=== PATIENT | female | born 1930 | race Caucasian/White ===

== ENCOUNTER 2018-08-14 21:45 | Outpatient (CLI) | END 2018-08-14 22:06 | disposition short-term general hospital (02) | LOC: AMBL 21:45 | PROVIDERS: ATTEND Family Medicine | DX: S01.01XA Laceration without foreign body of scalp, initial encounter (principal); S50.311A Abrasion of right elbow, initial encounter; W19.XXXA Unspecified fall, initial encounter; Y92.129 Unspecified place in nursing home as the place of occurrence of the external cause ==

== ENCOUNTER 2020-03-21 07:06 | Inpatient (IN) ==
--- NOTE | 2020-03-21 07:50 | CT ---
EXAM: CT scan of the chest without contrast HISTORY: Fever, cough TECHNIQUE: Helical imaging of the chest was performed without contrast. 5 mm thin axial images and coronal and sagittal reconstructions were provided for interpretation. Comparison none. FINDINGS: Nodular opacities are seen in the right lower lobe of the lung seen on axial image number 38. Similar findings are seen in the right upper lobe of the lung. Patchy nodular opacities are als o seen in the left lower lobe of the lung. The left upper lobe appears clear. The heart is normal s ize. No mediastinal abnormalities are seen. There is diffuse atherosclerotic disease of the thoraci c aorta and coronary arteries. No lytic or blastic lesions are seen within the osseous structures. IMPRESSION: Bilateral pneumonia. 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
[2020-03-21 07:58] LABS: BASOPHILS % (AUTO) 0.2 % (0.0-3.0); HEMATOCRIT 44.4 % (37.0-47.0); HEMOGLOBIN 15.1 g/dl (12.0-16.0); IMMATURE GRANULOCYTE # (AUTO) 0.1 (0.0-1.0); IMMATURE GRANULOCYTE % (AUTO) 0.4 % (0.0-5.0); LYMPHOCYTES # (AUTO) 0.6 K/uL (0.60-3.4); MEAN CORPUSCULAR HEMOGLOBIN 32.1 pg (27.0-31.0); MEAN CORPUSCULAR VOLUME 94.3 fl (81.0-99.0); MONOCYTES # (AUTO) 1.4 K/uL (0.4-2.0); MONOCYTES % (AUTO) 6.4 (0-10); NEUTROPHILS # (AUTO) 19.4 K/ul (2.0-6.9); PLATELET COUNT 232 10^3/uL (140-440); RDW COEFFICIENT OF VARIATION 13.4 % (11.6-14.8); RED BLOOD COUNT 4.71 10^6/ul (4.20-5.40); WHITE BLOOD COUNT 21.53 K/ul (4.6-10.2)
[2020-03-21 08:11] LABS: CREATINE KINASE 56.2 U/L (30-135)
[2020-03-21 08:13] LABS: ALANINE AMINOTRANSFERASE 50.7 U/L (0-35); ALBUMIN 3.89 g/dL (3.5-5.0); ALKALINE PHOSPHATASE 97.8 U/L (53-141); BILIRUBIN,TOTAL 0.96 mg/dL (0.2-1.3); BLOOD UREA NITROGEN 39.2 mg/dL (7-17); CALCIUM 9.58 mg/dL (8.4-10.2); CARBON DIOXIDE 23.8 mmol/L (22-30.0); CHLORIDE 121.5 mmol/L (98-107); CREATININE 0.95 mg/dL (0.60-1.30); GLUCOSE 151.9 mg/dL (74-106); POTASSIUM 3.12 mmol/L (3.5-5.1); SODIUM 152.4 mmol/L (134.5-145); TOTAL PROTEIN 7.13 g/dL (6.3-8.2)
[2020-03-21 08:16] LABS: ABG PH 7.51 (7.35-7.45)
[2020-03-21 08:32] LABS: BILIRUBIN,URINE 1+ (NEGATIVE); CLARITY,URINE Slightly (CLEAR); COLOR,URINE Yellow (YELLOW); GLUCOSE, URINE (UA) Negative (NEGATIVE); KETONES,URINE Negative (NEGATIVE); LEUKOCYTE ESTERASE ,URINE 1+ (NEGATIVE); NITRITE,URINE Negative (NEGATIVE); PH,URINE 5.5 (5-9); PROTEIN,URINE 2+ (NEGATIVE); URINE, BLOOD 2+ (NEGATIVE); UROBILINOGEN,URINE 0.2 (0.2)
[2020-03-21 08:41] LABS: SQUAMOUS EPITHELIAL CELL,UR NOT PRESENT (0-5)
[2020-03-21 08:46] LABS: AMORPHOUS SEDIMENT,UR 1+ (NOT PRESENT); BACTERIA,URINE 2+ (NOT PRESENT)
[2020-03-21 08:48] LABS: TROPONIN I 0.773 ng/ml (0.0000-0.120)
--- NOTE | 2020-03-21 09:35 | ED.PDOC ---
General ED Provider: Dr. DELIO QUEZADA-ER Chief Complaint: Fever Stated Complaint: sent from the [facility] for fever Time Seen by Physician: 09:34 Mode of Arrival: Ambulance Information Source: Patient Primary Care Provider: ANTWAN GARCIA Nursing and Triage Documentation Reviewed and Agree: Yes Does patient meet sepsis criteria?: No System Inflammatory Response Syndrome: Temp 101F or Greater Sepsis Protocol: For patient's 13 years and over: Temp is 96.8 and below OR 101 and greater Pulse >90 BPM Resp >20/minute Acutely Altered Mental Status Are patient's symptoms suggestive of a new infection, such as: -Pneumonia -Skin, Soft Tissue -Endocarditis -UTI -Bone, Joint Infection -Implantable Device -Acute Abdominal Infection -Wound Infection -Meningitis -Blood Stream Catheter Infection -Unknown Respiratory Complaint Exam Respiratory Complaint/Exam Onset/Duration: unknown Symptoms Are: Still present Timing: Constant Initial Severity: Mild Current Severity: Mild Location: Chest Character: Reports Non-productive cough Aggravating: Reports URI Alleviating: Reports None Associated Signs and Symptoms: Reports Fever History of Healthcare-Acquired Pneumonia: Lives at detention Home Oxygen Use: No Recent Stress Test: No Recent Echo/LV Function: No Current Antibiotic Use: No Current Asthma Medication Use: No Respiratory Distress: None Inadequate Respiratory Effort: No Dysphagia Present: No Stridor Present: No JVD Present: No Accessory Muscle Use: No Retractions: Not Present Diminished Breath Sounds: No Sinus Tenderness: None Grunting Respirations: No Kussmaul Respirations: No Differential Diagnoses: Pneumonia Non-Traumatic Chest Pain Syncope: EKG Performed Review of Systems Review Of Systems Constitutional: Reports Fever Eyes: Reports No symptoms Ears, Nose, Mouth, Throat: Reports No symptoms Respiratory: Reports No symptoms GI: Reports No symptoms : Reports No symptoms Musculoskeletal: Reports No symptoms Skin: Reports No symptoms Neurological: Reports No symptoms Endocrine: Reports No symptoms Hematologic/Lymphatic: Reports No symptoms All Other Systems: Reviewed and Negative Physical Exam Physical Exam Appearance: Reports Well-appearing Ill-appearing: None Pain Distress: None Eyes: Reports CANDIDO, EOMI and Conjunctiva clear ENT: Reports Ears normal and Nose normal Neck: Supple Respiratory: Reports Airway patent, Breath sounds clear and Breath sounds equal Cardiovascular: Reports RRR, Pulses normal, No rub and No murmur GI/: Reports Soft, Nontender, No masses and Bowel sounds normal Musculoskeletal: Reports Normal strength, ROM intact, No edema and No calf tenderness Skin: Reports Warm, Dry and Normal color Neurological: Reports Sensation intact, Motor intact, Reflexes intact and Cranial nerves intact Psychiatric: Reports Affect appropriate and Mood appropriate Interpretation Radiology Interpretation Radiology Interpretation By: ED Physician Radiology Results: Positive Exam Interpreted: CT Scan EKG Interpretation Time of EKG #1: 09:32 Rate: Tachy Rhythm: Sinus Ectopy: None [place]: NL ST Segment: Normal Interpretation: sinus tachy Physician Notification Case Discussed Physician Notified: dr garcia Time of Notification: 09:33 Critical Care Note Critical Care Note Total Critical Care Time (mins): 0 Course Course Hematology/Chemistry: 03/21/20 07:55 03/21/20 07:55 Orders, Labs, Meds: Lab Review 03/21/20 03/21/20 03/21/20 07:55 07:55 07:55 WBC 21.53 H RBC 4.71 Hgb 15.1 Hct 44.4 MCV 94.3 MCH 32.1 H MCHC 34.0 RDW Coeff of Jacques 13.4 Plt Count 232 Immature Gran % (Auto) 0.4 Neut % (Auto) 90.0 H Lymph % (Auto) 3.0 L [place] % (Auto) 6.4 Eos % (Auto) 0.0 Baso % (Auto) 0.2 Neut # (Auto) 19.4 H Lymph # (Auto) 0.6 [place] # (Auto) 1.4 Eos # (Auto) 0.0 Baso # (Auto) 0.0 Immature Gran # (Auto) 0.1 Puncture Site Base Excess O2 Saturation ABG pH ABG pCO2 ABG pO2 ABG HCO3 ABG Total CO2 Hemoglobin Oxyhemoglobin Carboxyhemoglobin Total Hemoglobin FiO2 % Sodium 152.4 H Potassium 3.12 L Chloride 121.5 H Carbon Dioxide 23.8 Anion Gap 10.22 BUN 39.2 H Creatinine 0.95 Estimated GFR (MDRD) 56.00 BUN/Creatinine Ratio 41.26 Glucose 151.9 H Lactic Acid 1.48 Calcium 9.58 Total Bilirubin 0.96 AST 57.0 H ALT 50.7 H Alkaline Phosphatase 97.8 Total Creatine Kinase Troponin I Total Protein 7.13 Albumin 3.89 Globulin 3.24 Albumin/Globulin Ratio 1.20 Urine Color Urine Clarity Urine pH Ur Specific [place] Urine Protein Urine Glucose (UA) Urine Ketones Urine Blood Urine Nitrite Urine Bilirubin Urine Urobilinogen Ur Leukocyte Esterase Urine Microscopic RBC Urine Microscopic WBC Ur Squamous Epith Cells Ur Transition Epith Cell Amorphous Sediment Urine Bacteria Adenovirus (PCR) B. pertussis DNA (PCR) B.parapertussis DNA PCR C. pneumoniae DNA (PCR) Coronavirus OC43 (PCR) Coronavirus HKU1 (PCR) Coronavirus 229E (PCR) Coronavirus NL63 (PCR) Human Metapneumovir PCR Influenza Type A (PCR) Influenza B (RT-PCR) M. pneumoniae (PCR) Parainfluenza 1 (PCR) Parainfluenza 2 (PCR) Parainfluenza 3 (PCR) Parainfluenza 4 (PCR) RSV (PCR) Entero/Rhino (PCR) SARS-CoV-2 (PCR) 03/21/20 03/21/20 03/21/20 07:55 07:55 08:00 WBC RBC Hgb Hct MCV MCH MCHC RDW Coeff of Jacques Plt Count Immature Gran % (Auto) Neut % (Auto) Lymph % (Auto) [place] % (Auto) Eos % (Auto) Baso % (Auto) Neut # (Auto) Lymph # (Auto) [place] # (Auto) Eos # (Auto) Baso # (Auto) Immature Gran # (Auto) Puncture Site Rb Base Excess 1.7 O2 Saturation 91.3 L ABG pH 7.51 H* ABG pCO2 31.0 L ABG pO2 55.0 L* ABG HCO3 24.7 ABG Total CO2 25.7 H Hemoglobin 1.1 Oxyhemoglobin 89.2 L Carboxyhemoglobin 2.9 H Total Hemoglobin 15.3 FiO2 % 21.0 Sodium Potassium Chloride Carbon Dioxide Anion Gap BUN Creatinine Estimated GFR (MDRD) BUN/Creatinine Ratio Glucose Lactic Acid Calcium Total Bilirubin AST ALT Alkaline Phosphatase Total Creatine Kinase 56.2 Troponin I 0.773 H* Total Protein Albumin Globulin Albumin/Globulin Ratio Urine Color Urine Clarity Urine pH Ur Specific [place] Urine Protein Urine Glucose (UA) Urine Ketones Urine Blood Urine Nitrite Urine Bilirubin Urine Urobilinogen Ur Leukocyte Esterase Urine Microscopic RBC Urine Microscopic WBC Ur Squamous Epith Cells Ur Transition Epith Cell Amorphous Sediment Urine Bacteria Adenovirus (PCR) Not detected B. pertussis DNA (PCR) Not detected B.parapertussis DNA PCR Not detected C. pneumoniae DNA (PCR) Not detected Coronavirus OC43 (PCR) Not detected Coronavirus HKU1 (PCR) Not detected Coronavirus 229E (PCR) Not detected Coronavirus NL63 (PCR) Not detected Human Metapneumovir PCR Not detected Influenza Type A (PCR) Not detected Influenza B (RT-PCR) Not detected M. pneumoniae (PCR) Not detected Parainfluenza 1 (PCR) Not detected Parainfluenza 2 (PCR) Not detected Parainfluenza 3 (PCR) Not detected Parainfluenza 4 (PCR) Not detected RSV (PCR) Not detected Entero/Rhino (PCR) Not detected SARS-CoV-2 (PCR) Not detected 03/21/20 08:05 WBC RBC Hgb Hct MCV MCH MCHC RDW Coeff of Jacques Plt Count Immature Gran % (Auto) Neut % (Auto) Lymph % (Auto) [place] % (Auto) Eos % (Auto) Baso % (Auto) Neut # (Auto) Lymph # (Auto) [place] # (Auto) Eos # (Auto) Baso # (Auto) Immature Gran # (Auto) Puncture Site Base Excess O2 Saturation ABG pH ABG pCO2 ABG pO2 ABG HCO3 ABG Total CO2 Hemoglobin Oxyhemoglobin Carboxyhemoglobin Total Hemoglobin FiO2 % Sodium Potassium Chloride Carbon Dioxide Anion Gap BUN Creatinine Estimated GFR (MDRD) BUN/Creatinine Ratio Glucose Lactic Acid Calcium Total Bilirubin AST ALT Alkaline Phosphatase Total Creatine Kinase Troponin I Total Protein Albumin Globulin Albumin/Globulin Ratio Urine Color Yellow Urine Clarity Slightly Urine pH 5.5 Ur Specific [place] >=1.030 Urine Protein 2+ H Urine Glucose (UA) Negative Urine Ketones Negative Urine Blood 2+ H Urine Nitrite Negative Urine Bilirubin 1+ H Urine Urobilinogen 0.2 Ur Leukocyte Esterase 1+ H Urine Microscopic RBC 5-10 Urine Microscopic WBC 10-20 Ur Squamous Epith Cells Not present Ur Transition Epith Cell 5-10 Amorphous Sediment 1+ Urine Bacteria 2+ Adenovirus (PCR) B. pertussis DNA (PCR) B.parapertussis DNA PCR C. pneumoniae DNA (PCR) Coronavirus OC43 (PCR) Coronavirus HKU1 (PCR) Coronavirus 229E (PCR) Coronavirus NL63 (PCR) Human Metapneumovir PCR Influenza Type A (PCR) Influenza B (RT-PCR) M. pneumoniae (PCR) Parainfluenza 1 (PCR) Parainfluenza 2 (PCR) Parainfluenza 3 (PCR) Parainfluenza 4 (PCR) RSV (PCR) Entero/Rhino (PCR) SARS-CoV-2 (PCR) Orders Category Date Time Status ABG DRAW REQUEST Stat CARDIO 03/21/20 07:13 Completed EKG-(ED ONLY) Stat CARDIO 03/21/20 07:13 Completed STRAIGHT CATH INSERTION ONCE CARE 03/21/20 07:17 Active ED PULVERIZER TENDER APPLIED .ONCE EMERGENCY 03/21/20 07:13 Active ED IV/MEDIPORT/POWERPORT .ONCE EMERGENCY 03/21/20 08:35 Active ABG COOX Stat LAB 03/21/20 08:00 Completed BLOOD CULTURE (ED ONLY) Stat LAB 03/21/20 07:55 Received CBC W/ AUTO DIFF Stat LAB 03/21/20 07:55 Completed COMPREHENSIVE METABOLIC PANEL Stat LAB 03/21/20 07:55 Completed CREATINE KINASE Stat LAB 03/21/20 07:55 Completed LACTIC ACID Stat LAB 03/21/20 07:55 Completed RESPIRATORY PANEL 2.1 (PCR) Stat LAB 03/21/20 07:55 Completed TROPONIN I Stat LAB 03/21/20 07:55 Completed URINALYSIS C & S IF INDICATED Stat LAB 03/21/20 08:05 Completed URINE CULTURE Stat LAB 03/21/20 08:05 Received 0.9 % Sodium Chloride [Saline Flush] MEDS 03/21/20 08:35 Active 1 syr IVF PRN PRN CT CHEST W/O CONTRAST Stat RADS 03/21/20 07:12 Completed Medications Generic Name Dose Route Start Last Admin Trade Name Freq PRN Reason Stop Dose Admin Sodium Chloride 1 syr 03/21/20 08:35 0.9% Sodium Chloride 10 Ml Disp.Syrin IVF PRN PRN To flush IV Vital Signs: Temp Pulse Resp BP Pulse Ox 03/21/20 07:13 97.1 F L 116 H 24 119/68 91 L Discharge Plan Discharge Patient Disposition: ADMITTED INPATIENT Discharge Problem: Acute respiratory failure, Bilateral pneumonia Prescriptions: No Action tramadol 50 mg tablet 50 mg PO BID RF: 0 lisinopril 10 mg tablet 10 mg PO DAILY RF: 0 oxybutynin chloride 5 mg tablet extended release 24hr 5 mg PO DAILY RF: 0 rivastigmine tartrate 3 mg capsule 3 mg PO BID RF: 0 magnesium hydroxide [Milk Of Magnesia Concentrated] 2,400 mg/10 mL Suspension 30 ml PO PRN PRN (Reason: Constipation) RF: 0 Vicks Babyrub Ointment 1 ea TOPICAL BEDTIME RF: 0 ED Provider: DELIO ALVAREZ Condition: Stable Physician Progress Note: []
[2020-03-21] MEDS ORDERED: SODIUM CHLORIDE 1,000 ML IV STA (09:44)
[2020-03-21] MEDS ORDERED: SODIUM CHLORIDE 1,000 ML IV SCH (10:00)
[2020-03-21] MEDS ORDERED: VANCOMYCIN 1 GM in SODIUM CHLORIDE 250 ML IV STA (10:15)
[2020-03-21] MEDS ORDERED: MILK OF MAGNESIA PO PRN (10:19)
[2020-03-21 11:20] VITALS: BMI 18.2
[2020-03-21] MEDS ORDERED: ZOSYN 3.375 GM 3.375 GM in SODIUM CHLORIDE 50 ML IV SCH (13:00)
[2020-03-21] MEDS ORDERED: VENTOLIN HFA (PER PUFF-WITH SPACER) IH ONE ×2 (17:40→23:00)
[2020-03-21] MEDS ORDERED: SODIUM CHLORIDE IV SCH (21:00)
[2020-03-21] MEDS ORDERED: VANCOMYCIN IV SCH (21:00)
[2020-03-22] MEDS ORDERED: VENTOLIN HFA (PER PUFF-WITH SPACER) IH ONE ×4 (04:45→23:00)
[2020-03-22] MEDS ORDERED: K-DUR ONE ×3 (14:23→20:42)
[2020-03-22] MEDS ORDERED: POTASSIUM CHLORIDE 20 MEQ VIAL- ADDITIVE ONLY IV ONE (15:18)
[2020-03-23] MEDS ORDERED: POTASSIUM CHLORIDE 20 MEQ VIAL- ADDITIVE ONLY IV ONE ×2 (02:45→16:35)
[2020-03-23] MEDS ORDERED: VENTOLIN HFA (PER PUFF-WITH SPACER) IH ONE ×2 (11:15→17:10)
[2020-03-23] MEDS: DITROPAN XL PO SCH (18:45)
[2020-03-23] MEDS: LOVENOX SUBCUT SCH ×2 (18:45→18:46)
[2020-03-23] MEDS: MAXIPIME 2 GM/50 ML D5W 2 GM/50 ML BAG IV SCH ×2 (18:46→21:38)
[2020-03-23] MEDS: PROAIR HFA (SINGLE PATIENT USE) IH SCH ×3 (18:46→21:38)
[2020-03-23] MEDS: RIVASTIGMINE TARTRATE 3 MG PO SCH ×3 (18:47→21:37)
[2020-03-23] MEDS: SOLU-MEDROL 40 MG IVP SCH ×4 (18:47→21:39)
[2020-03-23] MEDS: VANCOMYCIN 500 MG in SODIUM CHLORIDE 100 ML IV SCH (18:48)
[2020-03-23] MEDS: ZESTRIL PO SCH ×2 (18:48→18:49)
[2020-03-23] MEDS: ULTRAM PO SCH ×3 (18:48→21:38)
[2020-03-23 21:46] LABS: HEMATOCRIT 41.5 % (37.0-47.0); MEAN CORPUSCULAR VOLUME 96.5 fl (81.0-99.0); WHITE BLOOD COUNT 24.83 K/ul (4.6-10.2)
[2020-03-23 21:47] LABS: ANISOCYTOSIS NOT PRESENT (NOT PRESENT); MEAN CORPUSCULAR HEMOGLOBIN 32.6 pg (27.0-31.0); MEAN CORPUSCULAR HGB CONC 33.7 (31.8-35.4); PLATELET COUNT 191 10^3/uL (140-440); RDW COEFFICIENT OF VARIATION 13.8 % (11.6-14.8)
[2020-03-23 21:48] LABS: ASPARTATE AMINO TRANSFERASE 40.8 U/L (14-36); BILIRUBIN,TOTAL 0.88 mg/dL (0.2-1.3); BLOOD UREA NITROGEN 39.1 mg/dL (7-17); CALCIUM 8.93 mg/dL (8.4-10.2); CARBON DIOXIDE 22.6 mmol/L (22-30.0); CREATININE 0.85 mg/dL (0.60-1.30); GLUCOSE 132.4 mg/dL (74-106); POTASSIUM 2.88 mmol/L (3.5-5.1)
[2020-03-23 21:49] LABS: ALBUMIN 3.35 g/dL (3.5-5.0); ALKALINE PHOSPHATASE 85.7 U/L (53-141); TOTAL PROTEIN 6.46 g/dL (6.3-8.2)
[2020-03-23 22:00] LABS: HEMATOCRIT 39.5 % (37.0-47.0); MEAN CORPUSCULAR HEMOGLOBIN 32.2 pg (27.0-31.0); MEAN CORPUSCULAR HGB CONC 32.9 (31.8-35.4); MEAN CORPUSCULAR VOLUME 97.8 fl (81.0-99.0); PLATELET COUNT 191 10^3/uL (140-440); RDW COEFFICIENT OF VARIATION 14.2 % (11.6-14.8); RED BLOOD COUNT 4.04 10^6/ul (4.20-5.40); WHITE BLOOD COUNT 22.79 K/ul (4.6-10.2)
[2020-03-23 22:01] LABS: ANISOCYTOSIS NOT PRESENT (NOT PRESENT)
[2020-03-23 22:02] LABS: CHLORIDE 125.3 mmol/L (98-107); POTASSIUM 4.3 mmol/L (3.5-5.1); SODIUM 149.6 mmol/L (134.5-145)
[2020-03-23 22:03] LABS: ALBUMIN 2.99 g/dL (3.5-5.0); ASPARTATE AMINO TRANSFERASE 32.2 U/L (14-36); BILIRUBIN,TOTAL 0.51 mg/dL (0.2-1.3); CALCIUM 8.92 mg/dL (8.4-10.2); CARBON DIOXIDE 28.8 mmol/L (22-30.0); CREATININE 0.69 mg/dL (0.60-1.30); GLUCOSE 158.8 mg/dL (74-106); TOTAL PROTEIN 6.09 g/dL (6.3-8.2)
[2020-03-23 22:04] LABS: ALKALINE PHOSPHATASE 89.8 U/L (53-141)
[2020-03-23] MEDS: VENTOLIN HFA (PER PUFF-WITH SPACER) IH SCH (23:34)
[2020-03-24] MEDS: VENTOLIN HFA (PER PUFF-WITH SPACER) IH SCH ×4 (04:30→23:30)
[2020-03-24] MEDS ORDERED: POTASSIUM CHLORIDE 20 MEQ VIAL- ADDITIVE ONLY IV ONE (05:28)
[2020-03-24] MEDS: [UNRECOGNIZED DRUG - MIXTURE] IV SCH (05:32)
[2020-03-24 07:03] LABS: BASOPHILS % (AUTO) 0.1 % (0.0-3.0); HEMATOCRIT 38.1 % (37.0-47.0); HEMOGLOBIN 12.5 g/dl (12.0-16.0); IMMATURE GRANULOCYTE # (AUTO) 0.2 (0.0-1.0); IMMATURE GRANULOCYTE % (AUTO) 1.1 % (0.0-5.0); LYMPHOCYTES # (AUTO) 0.6 K/uL (0.60-3.4); LYMPHOCYTES % (AUTO) 3.2 (10.0-50.0); MEAN CORPUSCULAR HEMOGLOBIN 32.1 pg (27.0-31.0); MEAN CORPUSCULAR HGB CONC 32.8 (31.8-35.4); MEAN CORPUSCULAR VOLUME 97.9 fl (81.0-99.0); MONOCYTES # (AUTO) 0.4 K/uL (0.4-2.0); MONOCYTES % (AUTO) 2.3 (0-10); NEUTROPHILS # (AUTO) 17.3 K/ul (2.0-6.9); NEUTROPHILS % (AUTO) 93.3 % (42.2-75.2); PLATELET COUNT 185 10^3/uL (140-440); RDW COEFFICIENT OF VARIATION 13.8 % (11.6-14.8); RED BLOOD COUNT 3.89 10^6/ul (4.20-5.40)
[2020-03-24 07:38] LABS: ALANINE AMINOTRANSFERASE 51.3 U/L (0-35); ALBUMIN 2.99 g/dL (3.5-5.0); ALKALINE PHOSPHATASE 76.5 U/L (53-141); ASPARTATE AMINO TRANSFERASE 51.4 U/L (14-36); BILIRUBIN,TOTAL 0.5 mg/dL (0.2-1.3); CALCIUM 9.4 mg/dL (8.4-10.2); CREATININE 0.7 mg/dL (0.60-1.30); GLUCOSE 147.7 mg/dL (74-106); TOTAL PROTEIN 6.07 g/dL (6.3-8.2)
[2020-03-24 07:58] LABS: CARBON DIOXIDE 28.9 mmol/L (22-30.0); CHLORIDE 112.6 mmol/L (98-107); POTASSIUM 5.5 mmol/L (3.5-5.1); SODIUM 139.7 mmol/L (134.5-145)
[2020-03-24] MEDS ORDERED: LASIX IVP STA (08:23)
[2020-03-24] MEDS: MAXIPIME 2 GM/50 ML D5W 2 GM/50 ML BAG IV SCH ×2 (09:32→20:37)
[2020-03-24] MEDS: DITROPAN XL PO SCH (09:32)
[2020-03-24] MEDS: ULTRAM PO SCH ×2 (09:32→20:37)
[2020-03-24] MEDS: ZESTRIL PO SCH (09:32)
[2020-03-24] MEDS: LOVENOX SUBCUT SCH (09:33)
--- NOTE | 2020-03-24 09:35 | PCM.PROG ---
Attending Provider: ATTENDING PROVIDER: Dr. ANTWAN MEHTA This patient is seen with Amanda Hancock, Nurse Practitioner. DATE OF SERVICE: 03/24/20 SUBJECTIVE: This 89 year old /WHITE F was hospitalized 03/21/20. The patient is alert however not responsive. She has not been eating. Shallow respirations. She appears to be declining. REVIEW OF SYSTEMS: CONSTITUTIONAL: No night sweats. Lethargy. No fever or chills. Weakness. HEENT: Eyes: No visual changes. No eye pain. No eye discharge. ENT: No runny nose. No epistaxis. No sinus pain. No odynophagia. No congestion. RESPIRATORY: Cough, no congestion. No hemoptysis. Shortness of breath. CARDIOVASCULAR: No angina symptoms. No CHF symptoms. No atypical chest pain for CAD. No palpitations. No orthopnea.. GASTROINTESTINAL: No abdominal pain. No nausea or vomiting. No diarrhea or constipation. No hematemesis. No hematochezia. GENITOURINARY: No urgency. No frequency. No dysuria. No hematuria. No obstructive symptoms. No discharge. No pain. No significant abnormal bleeding. MUSCULOSKELETAL: No musculoskeletal pain; no joint swelling. NEUROLOGICAL: Awake, alert, oriented to time, place and person. No headache. No neck pain. No syncope. No seizures. No dizziness. PSYCHIATRIC: Not anxious. No depression. No suicidal thoughts. No homicidal thoughts. SKIN: No rash. No lesions. No wounds. ENDOCRINE: No unexplained weight loss. No weight gain. HEMATOLOGIC/LYMPHATIC: No anemia. No purpura. No petechiae. No prolonged or excessive bleeding. No palpable lymph nodes. PHYSICAL EXAMINATION: GENERAL: The patient is awake, alert and not oriented, lying in bed in no distress. VITAL SIGNS: Temperature 96.8 F, Pulse 59, Respiratory Rate 16, BP 144/68, Pulse Ox 98% HEENT: Head normocephalic, atraumatic. Eyes: Extraocular muscles are intact. Pupils are equal, round and reactive to light and accommodation. Ears: No lesions. Nose appeared normal. Throat: No exudate or erythema. NECK: Supple. No JVD, no carotid bruit. No lymphadenopathy or thyromegaly. LUNGS: bilateral rhonchi. Clear to auscultation. Percussion note normal. Chest symmetrical. HEART: S1, S2, no S3. No murmurs. No cyanosis or clubbing. No ascites. Pulses: Dorsalis pedis and posterior tibial pulses +1 to +2 both sides. ABDOMEN: Soft. Non-tender. Bowel sounds active. No CVA tenderness. No mass felt. EXTREMITIES: No edema. Full range of motion of all extremities, equal. NEUROLOGIC: No focal deficit. Cranial nerves II through XII are grossly intact. No headache, no double vision or headache. SKIN: Not dry. Intact. Turgor-normal. LYMPHATIC: No palpable lymph nodes/no lymphedema. MUSCULOSKELETAL: Normal joints with no swelling. Muscle tone is normal. LAB REVIEW: 03/24/20 06:50 03/23/20 06:00 03/24/20 06:50: WBC 18.50 H, RBC 3.89 L, Hgb 12.5, Hct 38.1, MCV 97.9, MCH 32.1 H, MCHC 32.8, RDW Coeff of Jacques 13.8, Plt Count 185, Immature Gran % (Auto) 1.1, Neut % (Auto) 93.3 H, Lymph % (Auto) 3.2 L, [place] % (Auto) 2.3, Eos % (Auto) 0.0, Baso % (Auto) 0.1, Neut # (Auto) 17.3 H, Lymph # (Auto) 0.6, [place] # (Auto) 0.4, Eos # (Auto) 0.0, Baso # (Auto) 0.0, Immature Gran # (Auto) 0.2 03/23/20 06:00: Sodium 149.6 H, Potassium 4.30, Chloride 125.3 H, Carbon Dioxide 28.8, Anion Gap -0.20, BUN 36.0 H, Creatinine 0.69, Estimated GFR (MDRD) 80.00, BUN/Creatinine Ratio 52.17, Glucose 158.8 H, Calcium 8.92, Total Bilirubin 0.51, AST 32.2, ALT 32.0, Alkaline Phosphatase 89.8, Total Protein 6.09 L, Albumin 2.99 L, Globulin 3.10, Albumin/Globulin Ratio 0.96 03/23/20 06:00: WBC 22.79 H, RBC 4.04 L, Hgb 13.0, Hct 39.5, MCV 97.8, MCH 32.2 H, MCHC 32.9, RDW Coeff of Jacques 14.2, Plt Count 191, Neutrophils % (Manual) 91.0 H, Lymphocytes % (Manual) 4.0 L, Monocytes % (Manual) 5.0, Anisocytosis Not present 03/22/20 06:00: Sodium 155.0 H, Potassium 2.88 L, Chloride 127.0 H*, Carbon Dioxide 22.6, Anion Gap 8.28, BUN 39.1 H, Creatinine 0.85, Estimated GFR (MDRD) 63.00, BUN/Creatinine Ratio 46.00, Glucose 132.4 H, Calcium 8.93, Total Bilirubin 0.88, AST 40.8 H, ALT 42.0 H, Alkaline Phosphatase 85.7, Total Protein 6.46, Albumin 3.35 L, Globulin 3.11, Albumin/Globulin Ratio 1.07 03/22/20 06:00: WBC 24.83 H, RBC 4.30, Hgb 14.0, Hct 41.5, MCV 96.5, MCH 32.6 H, MCHC 33.7, RDW Coeff of Jacuqes 13.8, Plt Count 191, Neutrophils % (Manual) 93.0 H, Lymphocytes % (Manual) 2.0 L, Monocytes % (Manual) 5.0, Anisocytosis Not present 03/21/20 23:45: Troponin I 1.330 H* ASSESSMENT: Please see below. 1. Bilateral pneumonia 2. Acute respiratory failure 3. Dementia 4. Hypernatremia 5. Dehydration PLAN: 1. ABG on 2 liters 2. COVID antibodies 3. 20mg Lasix IV Plan and coordination of the patient's care discussed in the presence of Utility Accounts Director and nurse. SCRIBED BY: Cathy GARLAND scribed while in presence of service performed by Dr. Mehta/Amanda Hancock APRN on 03/24/20 ([id number])
[2020-03-24] MEDS: RIVASTIGMINE TARTRATE 3 MG PO SCH ×2 (09:59→20:41)
[2020-03-24] MEDS ORDERED: LASIX ONE (10:33)
[2020-03-24] MEDS: SOLU-MEDROL 40 MG IVP SCH ×2 (10:42→20:30)
[2020-03-24 11:00] LABS: ABG PH 7.45 (7.35-7.45)
--- NOTE | 2020-03-24 11:06 | PN ---
DATE OF SERVICE: 03/21/20 SUBJECTIVE: 89-year-old white female hospitalized through the emergency room. She was told to be sent to the emergency room by me. The [facility] called me because she was wheezing and running a fever. The patient's rapid Covid-19 test was negative. The patient's Covid-19 RTPCR test was negative in the emergency room. She was hospitalized with fever. Likely has urinary tract infection with possibility of bronchitis. She is going to be on IV antibiotics, steroids, nebs. She is DNR. She will need some IV fluids. Condition right now is stable. The patient is obtunded in a way, seems to be awake but disoriented. Normal cardiovascular status. TIME SPENT: More than 30 minutes. Plan and coordination of the patient's care discussed in the presence of nurse. JONAS
--- NOTE | 2020-03-24 14:02 | PN ---
DATE OF SERVICE: 03/23/2020 SUBJECTIVE: 89 year old white female hospitalized with UTI and possibility of pneumonia. The patient's condition seems to be stabilizing but confused. REVIEW OF SYSTEMS: CONSTITUTIONAL: No night sweats. No fatigue, malaise, lethargy. No fever or chills. HEENT: Eyes: No visual changes. No eye pain. No eye discharge. ENT: No runny nose. No epistaxis. No sinus pain. No sore throat. No odynophagia. No congestion. RESPIRATORY: No cough, no congestion. No hemoptysis. No shortness of breath. CARDIOVASCULAR: No angina symptoms. No CHF symptoms. No atypical chest pain for CAD. No palpitations. No PND. No orthopnea. GASTROINTESTINAL: No abdominal pain. No nausea or vomiting. No diarrhea or constipation. No hematemesis. No hematochezia. GENITOURINARY: No urgency. No frequency. No dysuria. No hematuria. No obstructive symptoms. No discharge. No pain. No significant abnormal bleeding. MUSCULOSKELETAL: No musculoskeletal pain; no joint swelling. NEUROLOGICAL: No headache. No neck pain. No syncope. No seizures. No dizziness. PSYCHIATRIC: Not anxious. No depression. No suicidal thoughts. No homicidal thoughts. SKIN: No rash. No lesions. No wounds. ENDOCRINE: No unexplained weight loss. No weight gain. HEMATOLOGIC/LYMPHATIC: No anemia. No purpura. No petechiae. No prolonged or excessive bleeding. No palpable lymph nodes. PHYSICAL EXAMINATION: HEENT: Head normocephalic, atraumatic. Eyes: Extraocular muscles are intact. Pupils are equal, round and reactive to light and accommodation. Ears: No lesions. Nose appeared normal. Throat: No exudate or erythema. NECK: Supple. No JVD, no carotid bruit. No lymphadenopathy or thyromegaly. LUNGS: Decreased breath sounds. Clear to auscultation. Percussion note normal. Chest symmetrical. HEART: S1, S2, no S3. No murmurs. No cyanosis or clubbing. No ascites. Pulses: Dorsalis pedis and posterior tibial pulses +1 to +2 bilaterally. ABDOMEN: Soft. Nontender. Bowel sounds active. No CVA tenderness. No mass felt. EXTREMITIES: No edema. Full range of motion of all extremities, equal. NEUROLOGIC: No focal deficit. Cranial nerves II through XII are grossly intact. No headache, no double vision or headache. SKIN: Not dry. Intact. Turgor - normal. LYMPHATIC: No palpable lymph nodes/no lymphedema. MUSCULOSKELETAL: Normal joints with no swelling. Muscle tone is normal. ASSESSMENT: 1. UTI 2. Possibility of pneumonia 3. Dementia 4. Dehydration 5. Electrolyte imbalance. PLAN: 1. Continue D5W. The patient's sodium is much better. Sodium 149, chloride 125. 2. Hyperkalemia seems to have resolved with Potassium of 4.3. We will discontinue oral Potassium 3. He is being treated with Cefepime 4. The patient has cough 5. WBC count from 24,000 down to 22,000. CONDITION: Seems to have improved. TIME SPENT: More than 30 minutes. Plan and coordination of the patient's care discussed in the presence of nurse. JONAS
--- NOTE | 2020-03-24 14:37 | PN ---
DATE OF SERVICE: 03/22/20 SUBJECTIVE: 59-year-old white female hospitalized with urinary tract infection, dehydration, wheezing. The patient had hypernatrmeia. She has hypokalemia along with hypernatremia. The patient is still obtunded, opens her eyes. Appetite is poor. PHYSICAL EXAMINATION: HEENT: Head normocephalic, atraumatic. Eyes: Extraocular muscles are intact. Pupils are equal, round and reactive to light and accommodation. Ears: No lesions. Nose appeared normal. Throat: No exudate or erythema. NECK: Supple. No JVD, no carotid bruit. No lymphadenopathy or thyromegaly. LUNGS: Decreased breath sounds. Clear to auscultation. Percussion note normal. Chest symmetrical. HEART: S1, S2, no S3. No murmurs. No cyanosis or clubbing. No ascites. Pulses: Dorsalis pedis and posterior tibial pulses +1 to +2 bilaterally. ABDOMEN: Soft. Nontender. Bowel sounds active. No CVA tenderness. No mass felt. EXTREMITIES: No edema. Full range of motion of all extremities, equal. NEUROLOGIC: No focal deficit. Cranial nerves II through XII are grossly intact. No headache, no double vision or headache. SKIN: Not dry. Intact. Turgor - normal. LYMPHATIC: No palpable lymph nodes/no lymphedema. MUSCULOSKELETAL: Normal joints with no swelling. Muscle tone is normal. The patient is Covid negative. ASSESSMENT: 1. Dehydration with electrolyte imbalance. 2. Wheezing with bronchitis. 3. Urinary tract infection. PLAN: 1. Continue antibiotics, Cefepime. 2. Discontinue Vancomycin. 3. Add 30 mEq KCL to each IV bag, 1000 cc D5W to run 12 hourly. CONDITION: Stable. PROGNOSIS: Poor. TIME SPENT: More than 30 minutes. Plan and coordination of the patient's care discussed in the presence of nurse. JONAS
[2020-03-24] MEDS: SODIUM CHLORIDE 1,000 ML IV SCH (19:37)
[2020-03-25] MEDS: VENTOLIN HFA (PER PUFF-WITH SPACER) IH SCH ×4 (04:35→23:25)
[2020-03-25 05:33] LABS: HEMATOCRIT 38.6 % (37.0-47.0); MEAN CORPUSCULAR HEMOGLOBIN 31.7 pg (27.0-31.0); MEAN CORPUSCULAR HGB CONC 33.7 (31.8-35.4); MEAN CORPUSCULAR VOLUME 94.1 fl (81.0-99.0); PLATELET COUNT 222 10^3/uL (140-440); RDW COEFFICIENT OF VARIATION 13.1 % (11.6-14.8)
[2020-03-25 05:42] LABS: ANISOCYTOSIS NOT PRESENT (NOT PRESENT)
[2020-03-25 05:51] LABS: ALANINE AMINOTRANSFERASE 54.7 U/L (0-35); ALBUMIN 2.99 g/dL (3.5-5.0); ASPARTATE AMINO TRANSFERASE 37.1 U/L (14-36); BILIRUBIN,TOTAL 0.64 mg/dL (0.2-1.3); BLOOD UREA NITROGEN 24.8 mg/dL (7-17); CALCIUM 9.1 mg/dL (8.4-10.2); CHLORIDE 109.7 mmol/L (98-107); CREATININE 0.72 mg/dL (0.60-1.30); GLUCOSE 119.9 mg/dL (74-106); POTASSIUM 4.84 mmol/L (3.5-5.1); SODIUM 139.2 mmol/L (134.5-145); TOTAL PROTEIN 5.97 g/dL (6.3-8.2)
[2020-03-25] MEDS: [UNRECOGNIZED DRUG - MIXTURE] IV SCH (06:22)
[2020-03-25] MEDS: SODIUM CHLORIDE 1,000 ML IV SCH ×3 (06:22→21:29)
--- NOTE | 2020-03-25 08:49 | PCM.PROG ---
Attending Provider: ATTENDING PROVIDER: Dr. ANTWAN MEHTA This patient is seen with Amanda Hancock, Nurse Practitioner. DATE OF SERVICE: 03/25/20 SUBJECTIVE: This 89 year old /WHITE F was hospitalized 03/21/20. The patient is resting comfortably. White count has slightly improved. ABGs were good y esterday. The patient did have one episode where she spoke otherwise nonverbal and somewhat combative. She has no fever and still not eating very well. Blood pressure has been slightly elevated. REVIEW OF SYSTEMS: CONSTITUTIONAL: No night sweats. No fatigue, malaise, lethargy. No fever or chills. Weakness. HEENT: Eyes: No visual changes. No eye pain. No eye discharge. ENT: No runny nose. No epistaxis. No sinus pain. No odynophagia. No congestion. RESPIRATORY: No cough, no congestion. No hemoptysis. No shortness of breath. CARDIOVASCULAR: No angina symptoms. No CHF symptoms. No atypical chest pain for CAD. No palpitations. No orthopnea.. GASTROINTESTINAL: No abdominal pain. No nausea or vomiting. No diarrhea or constipation. No hematemesis. No hematochezia. GENITOURINARY: No urgency. No frequency. No dysuria. No hematuria. No obstructive symptoms. No discharge. No pain. No significant abnormal bleeding. MUSCULOSKELETAL: No musculoskeletal pain; no joint swelling. NEUROLOGICAL: Awake, alert, confusion. No headache. No neck pain. No syncope. No seizures. No dizziness. PSYCHIATRIC: Not anxious. No depression. No suicidal thoughts. No homicidal thoughts. SKIN: No rash. No lesions. No wounds. ENDOCRINE: No unexplained weight loss. No weight gain. HEMATOLOGIC/LYMPHATIC: No anemia. No purpura. No petechiae. No prolonged or excessive bleeding. No palpable lymph nodes. PHYSICAL EXAMINATION: GENERAL: The patient is awake, alert and not oriented, lying in bed in no distress. VITAL SIGNS: Temperature 97.9 F, Pulse 59, Respiratory Rate 14, BP 149/68, Pulse Ox 98% HEENT: Head normocephalic, atraumatic. Eyes: Extraocular muscles are intact. Pupils are equal, round and reactive to light and accommodation. Ears: No lesions. Nose appeared normal. Throat: No exudate or erythema. NECK: Supple. No JVD, no carotid bruit. No lymphadenopathy or thyromegaly. LUNGS: Diminished breath sounds. Clear to auscultation. Percussion note normal. Chest symmetrical. HEART: S1, S2, no S3. No murmurs. No cyanosis or clubbing. No ascites. Pulses: Dorsalis pedis and posterior tibial pulses +1 to +2 both sides. ABDOMEN: Soft. Non-tender. Bowel sounds active. No CVA tenderness. No mass felt. EXTREMITIES: No edema. Full range of motion of all extremities, equal. NEUROLOGIC: No focal deficit. Cranial nerves II through XII are grossly intact. No headache, no double vision or headache. SKIN: Not dry. Intact. Turgor-normal. LYMPHATIC: No palpable lymph nodes/no lymphedema. MUSCULOSKELETAL: Normal joints with no swelling. Muscle tone is normal. LAB REVIEW: 03/25/20 05:20 03/25/20 05:20 03/25/20 05:20: Sodium 139.2, Potassium 4.84, Chloride 109.7 H, Carbon Dioxide 19.9 L D, Anion Gap 14.44, BUN 24.8 H, Creatinine 0.72, Estimated GFR (MDRD) 76.00, BUN/Creatinine Ratio 34.44, Glucose 119.9 H, Calcium 9.10, Total Bilirubin 0.64, AST 37.1 H, ALT 54.7 H, Alkaline Phosphatase 72.0, Total Protein 5.97 L, Albumin 2.99 L, Globulin 2.98, Albumin/Globulin Ratio 1.00 03/25/20 05:20: WBC 12.70 H D, RBC 4.10 L, Hgb 13.0, Hct 38.6, MCV 94.1, MCH 31.7 H, MCHC 33.7, RDW Coeff of Jacques 13.1, Plt Count 222, Neutrophils % (Manual) 93.0 H, Lymphocytes % (Manual) 2.0 L, Monocytes % (Manual) 5.0, Anisocytosis Not present 03/24/20 10:56: Puncture Site Lrad, Base Excess -1.8, O2 Saturation 96.4, ABG pH 7.45, ABG pCO2 32.0 L, ABG pO2 81.0 L, ABG HCO3 22.2, ABG Total CO2 23.2, Fidel Test +, Hemoglobin 1.3, Oxyhemoglobin 94.3 L, Carboxyhemoglobin 2.3 H, Total Hemoglobin 13.4 03/24/20 10:30: Miscellaneous Test Sent to [facility] 03/24/20 06:50: Sodium 139.7, Potassium 5.50 H, Chloride 112.6 H, Carbon Dioxide 28.9, Anion Gap 3.70, BUN 26.0 H, Creatinine 0.70, Estimated GFR (MDRD) 79.00, BUN/Creatinine Ratio 37.14, Glucose 147.7 H, Calcium 9.40, Total Bilirubin 0.50, AST 51.4 H, ALT 51.3 H, Alkaline Phosphatase 76.5, Total Protein 6.07 L, Albumin 2.99 L, Globulin 3.08, Albumin/Globulin Ratio 0.97 03/21/20 10:07: SARS-CoV-2 RNA (RT-PCR) ASSESSMENT: Please see below. 1. Bilateral pneumonia 2. Dehydration 3. 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 Hypertension PLAN: 1. Increase Lisinopril to 20mg BID 2. Continue IV antibiotics. Plan and coordination of the patient's care discussed in the presence of Employment Services Director and nurse. SCRIBED BY: Cathy GARLAND scribed while in presence of service performed by Dr. Mehta/Amanda Hancock APRN on 03/25/20 ([id number])
--- NOTE | 2020-03-25 09:02 | HP ---
DATE OF SERVICE: 03/21/20 HISTORY OF PRESENT ILLNESS: 89-year-old white female who is a resident of [facility]. She was sent to the emergency room for fever. PAST MEDICAL HISTORY: Overactive bladder Depression Dementia with behavioral disturbances Dyslipidemia Hypertension History of falls Generalized muscle weakness History of weight loss History of CVA with mild dysphasia Polyarthritis She has a history of a lung nodule in 2018 that was found incidentally on an ER visit. I spoke with her daughter, which is her POA and she wished not to have any further evaluation such as CT scan. It was found on chest x-ray in the ER. I did discuss with them the possibility that this could be a malignancy and she demonstrated understanding. It is to be noted that this was found in January 2018. I did discuss with her and she wished for no further evaluation to be done. Cholelithiasis asymptomatic Old compression deformities, T4 through T8 PAST SURGICAL HISTORY: None known REVIEW OF SYSTEMS: CONSTITUTIONAL: Positive for fever, weakness. No night sweats. No fatigue, malaise, lethargy. No chills. HEENT: Eyes: No visual changes. No eye pain. No eye discharge. ENT: No runny nose. No epistaxis. No sinus pain. No sore throat. No odynophagia. No ear pain. No congestion. RESPIRATORY: No cough, no congestion. No hemoptysis. No shortness of breath. CARDIOVASCULAR: No angina symptoms. No CHF symptoms. No atypical chest pain for CAD. No palpitations. No PND. No orthopnea. GASTROINTESTINAL: No abdominal pain. No nausea or vomiting. No diarrhea or constipation. No hematemesis. No hematochezia. GENITOURINARY: No urgency. No frequency. No dysuria. No hematuria. No obstructive symptoms. No discharge. No pain. No significant abnormal bleeding. MUSCULOSKELETAL: No musculoskeletal pain. No joint swelling. No arthritis. NEUROLOGICAL: Positive for confusion. She is not speaking at this point. No headache. No neck pain. No syncope. No seizures. No dizziness. PSYCHIATRIC: Not anxious. No depression. No suicidal thoughts. No homicidal thoughts. SKIN: No rash. No lesions. No wounds. ENDOCRINE: No unexplained weight loss. No weight gain. HEMATOLOGIC/LYMPHATIC: No anemia. No purpura. No petechiae. No prolonged or excessive bleeding. No palpable lymph nodes. PERSONAL/FAMILY/SOCIAL HISTORY: She is . She lives at [facility]. She is a nonsmoker. No alcohol or illicit drug use. MEDICATIONS: Rivastigmine Tartrate 3 mg p.o. b.i.d. Oxybutynin Chloride 5 mg p.o. daily Tramadol 50 mg p.o. b.i.d. Lisinopril 10 mg p.o. daily Magnesium Hydroxide (MOM) Eucalyptus Hli-Pwmk-Zxbokxuc-Ida oils one each topical bedtime ALLERGIES: NKDA PHYSICAL EXAMINATION: GENERAL: The patient is alert, not oriented. She is nonverbal, cachetic. VITAL SIGNS: Temperature 97.1, heart rate 116, respirations 24, blood pressure 119/68, pulse ox 91% on room air. HEENT: Head normocephalic, atraumatic. Eyes: Extraocular muscles are intact. Pupils are equal, round and reactive to light and accommodation. Ears: No lesions. Nose appeared normal. Throat: No exudate or erythema. NECK: Supple. No JVD, no carotid bruit. No lymphadenopathy or thyromegaly. LUNGS: Very shallow respirations. Extremely diminished breath sounds bilaterally. Clear to auscultation. Percussion note normal. Chest symmetrical. HEART: S1, S2, no S3. No murmur. No cyanosis or clubbing. No ascites. Pulses: Dorsalis pedis and posterior tibial pulses +1 to +2 bilaterally. ABDOMEN: Soft. Nontender. Bowel sounds active. No CVA tenderness. No mass felt. EXTREMITIES: No edema. Full range of motion of all extremities, equal. NEUROLOGIC: No focal deficit. Cranial nerves II through XII are grossly intact. No headache, no double vision or headache. SKIN: Not dry. Intact. Turgor - normal. LYMPHATIC: No palpable lymph nodes/no lymphedema. MUSCULOSKELETAL: Normal joints with no swelling. Muscle tone is normal. LABS/ABG'S/IMAGING: White count 21.53, hemoglobin 15.1, hematocrit 44.4, platelets 232. Sodium 152, potassium 3.1, BUN 39, creatinine 0.95, glucose 151. AST 57, ALT 50.7, glucose 151, total protein 7.13. ABGs on room air: pH 7.51, 02 sat 91.3, pc02 31, p02 55, bicarb 24.7, respiratory PCR is negative. Urine shows 2+ protein, 2+ blood, 1+ bili, 2+ bacteria. CT of the chest shows bilateral pneumonia. ASSESSMENT: 1. ACUTE BILATERAL PNEUMONIA 2. ACUTE RESPIRATORY FAILURE 3. DEMENTIA 4. DEHYDRATION 5. HYPERTENSION PLAN: 1. We will admit. 2. Routine telemetry orders. 3. CBC, CMP daily. 4. Will do Covid testing through [facility]. 5. D5 Water with 30 of K at 83 cc/hr IV. 6. Oxygen at 2L NC. 7. Repeat ABGs in 2 hours. 8. Continue all home medications. 9. Regular diet same as alf diet. 10. Blood cultures. 11. Continuous pulse ox. 12. Start Rocephin 1 gm IV daily along with Doxycycline 100 mg IV q.12hr. 13. Solu-Medrol 100 mg IV q.12hr. 14. Albuterol inhaler two puff t.i.d. RICK. 15. Symbicort 160 two puffs b.i.d. RICK. 16. Will follow closely. TIME SPENT: More than 70 minutes. MTDD
[2020-03-25] MEDS: ULTRAM PO SCH ×2 (09:03→20:29)
[2020-03-25] MEDS: DITROPAN XL PO SCH (09:03)
[2020-03-25] MEDS: ZESTRIL PO SCH ×2 (09:03→20:28)
[2020-03-25] MEDS: MAXIPIME 2 GM/50 ML D5W 2 GM/50 ML BAG IV SCH ×2 (09:09→20:29)
[2020-03-25] MEDS: RIVASTIGMINE TARTRATE 3 MG PO SCH ×2 (10:45→21:17)
[2020-03-25] MEDS: LOVENOX SUBCUT SCH (10:53)
[2020-03-25] MEDS: SOLU-MEDROL 40 MG IVP SCH ×2 (10:53→22:03)
--- NOTE | 2020-03-25 10:59 | PN ---
DATE OF SERVICE: 03/24/2020 SUBJECTIVE: The patient was seen and examined with the Nurse Practitioner. The patient's condition is improving with IV antibiotics. The patient is afebrile. COVID antibodies will be checked. TIME SPENT: More than 30 minutes. Plan and coordination of the patient's care discussed in the presence of nurse. JONAS
[2020-03-25 11:52] LABS: CARBON DIOXIDE 27.3 mmol/L (22-30.0)
--- NOTE | 2020-03-25 16:24 | DI ---
Exam: Single view of the chest. Comparison: CT chest performed 03/21/2020. Reason for exam: Bilateral pneumonia. FINDINGS: Consolidation in the left lung base with patchy airspace opacities bilaterally. The cardi ac silhouette remains prominent in size. No pneumothorax is seen. Impression: Basilar atelectasis/pneumonia, left more so than right with persistent cardiomegaly. Patchy airspace opacities in the right upper lobe also likely secondary to atelectasis and pneumonia.
[2020-03-26] MEDS: VENTOLIN HFA (PER PUFF-WITH SPACER) IH SCH ×2 (04:30→10:40)
[2020-03-26 05:46] LABS: HEMATOCRIT 38.3 % (37.0-47.0); HEMOGLOBIN 12.8 g/dl (12.0-16.0); MEAN CORPUSCULAR HEMOGLOBIN 31.6 pg (27.0-31.0); MEAN CORPUSCULAR HGB CONC 33.4 (31.8-35.4); MEAN CORPUSCULAR VOLUME 94.6 fl (81.0-99.0); PLATELET COUNT 219 10^3/uL (140-440); RDW COEFFICIENT OF VARIATION 12.9 % (11.6-14.8); RED BLOOD COUNT 4.05 10^6/ul (4.20-5.40); WHITE BLOOD COUNT 12.99 K/ul (4.6-10.2)
[2020-03-26 05:55] LABS: ALANINE AMINOTRANSFERASE 50.8 U/L (0-35); ALBUMIN 2.84 g/dL (3.5-5.0); ALKALINE PHOSPHATASE 69.3 U/L (53-141); ASPARTATE AMINO TRANSFERASE 26.9 U/L (14-36); BILIRUBIN,TOTAL 0.6 mg/dL (0.2-1.3); BLOOD UREA NITROGEN 25.4 mg/dL (7-17); CALCIUM 8.73 mg/dL (8.4-10.2); CARBON DIOXIDE 26.7 mmol/L (22-30.0); CHLORIDE 110.7 mmol/L (98-107); CREATININE 0.67 mg/dL (0.60-1.30); GLUCOSE 109.7 mg/dL (74-106); POTASSIUM 4.67 mmol/L (3.5-5.1); TOTAL PROTEIN 5.71 g/dL (6.3-8.2)
[2020-03-26 05:57] LABS: ANISOCYTOSIS NOT PRESENT (NOT PRESENT)
[2020-03-26] MEDS ORDERED: SODIUM CHLORIDE 1,000 ML IV SCH (08:17)
[2020-03-26] MEDS: SOLU-MEDROL 40 MG IVP SCH (09:07)
[2020-03-26] MEDS: MAXIPIME 2 GM/50 ML D5W 2 GM/50 ML BAG IV SCH (09:23)
[2020-03-26] MEDS: DITROPAN XL PO SCH (09:28)
[2020-03-26] MEDS: ZESTRIL PO SCH ×2 (09:28→09:30)
[2020-03-26] MEDS: ULTRAM PO SCH (09:28)
[2020-03-26] MEDS: RIVASTIGMINE TARTRATE 3 MG PO SCH (09:29)
[2020-03-26] MEDS: LOVENOX SUBCUT SCH (09:31)
[2020-03-26] MEDS: SODIUM CHLORIDE 1,000 ML IV SCH (09:31)
--- NOTE | 2020-03-26 10:47 | PCM.PROG ---
Attending Provider: ATTENDING PROVIDER: Dr. ANTWAN MEHTA This patient is seen with Amanda Hancock, Nurse Practitioner. DATE OF SERVICE: 03/26/20 SUBJECTIVE: This 89 year old /WHITE F was hospitalized 03/21/20. The patient is resting comfortably. Still not eating and drinking. Repeat chest x-ray showed not much improvement. I feel her prognosis is poor however the family is not ready for Hospice referral at this time. REVIEW OF SYSTEMS: CONSTITUTIONAL: No night sweats. No fatigue, malaise, lethargy. No fever or chills. Weakness. HEENT: Eyes: No visual changes. No eye pain. No eye discharge. ENT: No runny nose. No epistaxis. No sinus pain. No odynophagia. No congestion. RESPIRATORY: Cough, no congestion. No hemoptysis. No shortness of breath. CARDIOVASCULAR: No angina symptoms. No CHF symptoms. No atypical chest pain for CAD. No palpitations. No orthopnea.. GASTROINTESTINAL: No abdominal pain. No nausea or vomiting. No diarrhea or constipation. No hematemesis. No hematochezia. GENITOURINARY: No urgency. No frequency. No dysuria. No hematuria. No obstruct lona symptoms. No discharge. No pain. No significant abnormal bleeding. MUSCULOSKELETAL: No musculoskeletal pain; no joint swelling. NEUROLOGICAL: Awake, alert, confusion. No headache. No neck pain. No syncope. No seizures. No dizziness. PSYCHIATRIC: Not anxious. No depression. No suicidal thoughts. No homicidal thoughts. SKIN: No rash. No lesions. No wounds. ENDOCRINE: No unexplained weight loss. No weight gain. HEMATOLOGIC/LYMPHATIC: No anemia. No purpura. No petechiae. No prolonged or excessive bleeding. No palpable lymph nodes. PHYSICAL EXAMINATION: GENERAL: The patient is awake, alert and not oriented, lying in bed in no distress. VITAL SIGNS: Temperature 96.6 F, Pulse 63, Respiratory Rate 14, BP 154/69, Pulse Ox 97% HEENT: Head normocephalic, atraumatic. Eyes: Extraocular muscles are intact. Pupils are equal, round and reactive to light and accommodation. Ears: No lesions. Nose appeared normal. Throat: No exudate or erythema. NECK: Supple. No JVD, no carotid bruit. No lymphadenopathy or thyromegaly. LUNGS: Diminished breath sounds. Clear to auscultation. Percussion note normal. Chest symmetrical. HEART: S1, S2, no S3. No murmurs. No cyanosis or clubbing. No ascites. Pulses: Dorsalis pedis and posterior tibial pulses +1 to +2 both sides. ABDOMEN: Soft. Non-tender. Bowel sounds active. No CVA tenderness. No mass felt. EXTREMITIES: No edema. Full range of motion of all extremities, equal. NEUROLOGIC: No focal deficit. Cranial nerves II through XII are grossly intact. No headache, no double vision or headache. SKIN: Not dry. Intact. Turgor-normal. LYMPHATIC: No palpable lymph nodes/no lymphedema. MUSCULOSKELETAL: Normal joints with no swelling. Muscle tone is normal. LAB REVIEW: 03/26/20 04:57 03/26/20 04:57 03/26/20 04:57: Sodium 138.0, Potassium 4.67, Chloride 110.7 H, Carbon Dioxide 26.7, Anion Gap 5.27, BUN 25.4 H, Creatinine 0.67, Estimated GFR (MDRD) 83.00, BUN/Creatinine Ratio 37.91, Glucose 109.7 H, Calcium 8.73, Total Bilirubin 0.60, AST 26.9, ALT 50.8 H, Alkaline Phosphatase 69.3, Total Protein 5.71 L, Albumin 2.84 L, Globulin 2.87, Albumin/Globulin Ratio 0.98 03/26/20 04:57: WBC 12.99 H, RBC 4.05 L, Hgb 12.8, Hct 38.3, MCV 94.6, MCH 31.6 H, MCHC 33.4, RDW Coeff of Jacques 12.9, Plt Count 219, Neutrophils % (Manual) 91.0 H, Lymphocytes % (Manual) 5.0 L, Monocytes % (Manual) 4.0, Anisocytosis Not present 03/25/20 05:20: Carbon Dioxide 27.3, Anion Gap 7.04 ASSESSMENT: Please see below. 1. Bilateral pneumonia 2. Failure to thrive 3. End stage dementia 4. Hypertension PLAN: 1. Decrease IV fluids to 50cc 2. Continue IV antibiotics 3. Increase Lisinopril to 40mg BID 4. She will be admitted to swing bed for continued IV Therapy. Plan and coordination of the patient's care discussed in the presence of Product Ambassador and nurse. SCRIBED BY: KESHAV FERRER, Air Vice Marshal scribed while in presence of service performed by Dr. Mehta/Amanda Hancock APRN on 03/26/20 ([id number])
--- NOTE | 2020-03-26 13:55 | CM.DICTOOL ---
ADMISSION: 03/21/20 09:40 DISCHARGE: MARCH 26, 2020 TO SWING BED DATE OF SERVICE: 03/26/20 FINAL DIAGNOSIS ACUTE RESPIRATORY FAILURE BILATERAL PNEUMONIA (PER CHEST CT) FAILURE TO THRIVE DEMENTIA, END STAGE HYPERTENSION HYPERNATREMIA, RESOLVED DEHYDRATION, RESOLVED HYPOKALEMIA, RESOLVED DYSPHAGIA OVERACTIVE BLADDER LAST VITALS Temp Pulse Resp BP Pulse Ox 96.6 F L 63 14 154/69 H 92 L 03/26/20 05:55 03/26/20 05:55 03/26/20 05:55 03/26/20 05:55 03/26/20 10:00 TAKE THESE MEDICATIONS AT HOME Albuterol Sulfate (Albuterol Sulfate (Ventolin Hfa) 18 Gm 1 Puff With Spacer) 2 puff IH Q6HR [facility] Last Admin: 03/26/20 10:40 Dose: 2 puff Documented by: Enoxaparin Sodium (Enoxaparin Sodium 30 Mg/0.3 Ml Syr) 30 mg SUBCUT DAILY [facility] Last Admin: 03/26/20 09:31 Dose: 30 mg Documented by: CEFEPIME 2 GM/D5W (Maxipime 2 Gm/50 Ml D5w) 2 gm in 50 mls @ 75 mls/hr IV Q12HR [facility] Stop: 03/31/20 11:00 Last Admin: 03/26/20 09:23 Dose: 75 mls/hr Documented by: Sodium Chloride (Sodium Chloride) 1,000 mls @ 50 mls/hr IV .Q20H [facility] Last Admin: 03/26/20 11:04 Dose: 50 mls/hr Documented by: Lisinopril (Lisinopril 10 Mg Tablet) 40 mg PO BID [facility] Last Admin: 03/26/20 09:30 Dose: Not Given Documented by: Magnesium Hydroxide (Magnesium Hydroxide 30 Ml Cup) 30 ml PO DAILY PRN PRN Reason: Constipation PREDNISONE 20 MG [facility] DAILY AM LAST ADMIN: Non-Formulary Medication (Rivastigmine Tartrate) 3 mg PO BID [facility] Last Admin: 03/26/20 09:29 Dose: Not Given Documented by: Oxybutynin Chloride (Oxybutynin Chloride 5 Mg Tab.Er.24) 5 mg PO DAILY [facility] Last Admin: 03/26/20 09:28 Dose: 5 mg Documented by: Tramadol HCl (Tramadol Hcl 50 Mg Tablet) 50 mg PO BID [facility] Last Admin: 03/26/20 09:28 Dose: 50 mg Documented by: ALLERGIES No Known Allergies Allergy (Verified 03/21/20 08:29) DISCONTINUED MEDICATIONS SOLU-MEDROL 40 MG IV Q 12 HOURS NEW PRESCRIPTIONS: CEFEPIME 2 GRAM IV Q 12 HOURS FOR 5 DAYS PREDNISONE 20 MG PO DAILY SMOKING: NOT APPLICABLE DISEASE SPECIFIC EDUCATION: NOT APPLICABLE DUE TO PATIENT DEMENTIA LAB REVIEW: 03/26/20 04:57 03/26/20 04:57 03/26/20 08:17: Vancomycin Trough < 5.000 L 03/26/20 04:57: Sodium 138.0, Potassium 4.67, Chloride 110.7 H, Carbon Dioxide 26.7, Anion Gap 5.27, BUN 25.4 H, Creatinine 0.67, Estimated GFR (MDRD) 83.00, BUN/Creatinine Ratio 37.91, Glucose 109.7 H, Calcium 8.73, Total Bilirubin 0.60, AST 26.9, ALT 50.8 H, Alkaline Phosphatase 69.3, Total Protein 5.71 L, Albumin 2.84 L, Globulin 2.87, Albumin/Globulin Ratio 0.98 03/26/20 04:57: WBC 12.99 H, RBC 4.05 L, Hgb 12.8, Hct 38.3, MCV 94.6, MCH 31.6 H, MCHC 33.4, RDW Coeff of Jacques 12.9, Plt Count 219, Neutrophils % (Manual) 91.0 H, Lymphocytes % (Manual) 5.0 L, Monocytes % (Manual) 4.0, Anisocytosis Not present PLAN: DISCHARGE TO SWING BED DIET: PUREED DIET (CABIN AGENT MODIFIED) BOOST PLUS BID DIETITIAN TO CONSULT FOR NUTRITIONAL NEEDS ACTIVITY: TURN EVERY 2 HOURS UP TO CHAIR AT LEAST 1 TIME DAILY INCONTINENT CARE DECUBITUS PRECAUTIONS VITAL SIGNS EVERY 12 HOURS WEIGH EVERY 3 DAYS INTAKE/OUTPUT LABS: CBC, CMP EVERY 3 DAYS CODE STATUS: DO NOT RESUSCITATE MS. PADILLA IS ALERT TO PERSON. SHE IS NON-VERBAL AND DOES NOT ANSWER QUESTIONS OR FOLLOW COMMANDS. SHE WILL OCCASIONAL SPEAK AT RANDOM. SHE REQUIRES TOTAL CARE BY NURSING STAFF FOR FEEDING, REPOSITIONING, BATHING AND DRESSING. SHE REQUIRES MAX ASSIST OF 2 FOR TRANSFER FROM THE BED TO THE CHAIR. SHE IS INCONTINENT OF BOWEL AND BLADDER. MEAL INTAKES ARE POOR AT 10-25%. LIQUID INTAKE IS POOR. LABS ARE STABLE. SKIN IS INTACT, BUT BRUISING IS NOTED TO THE UPPER EXTREMITIES. MD ARTURO FINK, FEEDLOT MANAGER
[2020-03-26 14:21] VITALS: BP 162/79; TEMP 98.1
--- NOTE | 2020-03-26 14:38 | PN ---
DATE OF SERVICE: 03/25/2020 SUBJECTIVE: The patient was seen and examined with the Nurse Practitioner. The patient's condition seems to be improving but she is still confused. Continue antibiotics. TIME SPENT: More than 30 minutes. Plan and coordination of the patient's care discussed in the presence of nurse. JONAS
--- NOTE | 2020-03-27 14:13 | DS ---
DATE OF SERVICE: 03/26/20 (FROM ACUTE) FINAL DIAGNOSIS: 1. ACUTE RESPIRATORY FAILURE 2. BILATERAL PNEUMONIA (PER CHEST CT) 3. FAILURE TO THRIVE 4. DEMENTIA, END STAGE 5. HYPERTENSION 6. HYPERNATREMIA, RESOLVED 7. DEHYDRATION, RESOLVED 8. HYPOKALEMIA, RESOLVED 9. DYSPHAGIA 10. OVERACTIVE BLADDER LAST VITALS Temp Pulse Resp BP Pulse Ox 96.6 F L 63 14 154/69 H 92 L 03/26/20 05:55 03/26/20 05:55 03/26/20 05:55 03/26/20 05:55 03/26/20 10:00 DISCHARGE INSTRUCTIONS: 1. DISCHARGE TO SWING BED 2. INCONTINENT CARE 3. DECUBITUS PRECAUTIONS 4. VITAL SIGNS EVERY 12 HOURS 5. WEIGH EVERY 3 DAYS 6. INTAKE/OUTPUT LABS: CBC, CMP EVERY 3 DAYS MEDICATIONS AT DISCHARGE: Albuterol Sulfate (Albuterol Sulfate (Ventolin Hfa) 18 Gm 1 Puff With Spacer) 2 puff IH Q6HR [facility] Last Admin: 03/26/20 10:40 Dose: 2 puff Documented by: Enoxaparin Sodium (Enoxaparin Sodium 30 Mg/0.3 Ml Syr) 30 mg SUBCUT DAILY [facility] Last Admin: 03/26/20 09:31 Dose: 30 mg Documented by: CEFEPIME 2 GM/D5W (Maxipime 2 Gm/50 Ml D5w) 2 gm in 50 mls @ 75 mls/hr IV Q12HR [facility] Stop: 03/31/20 11:00 Last Admin: 03/26/20 09:23 Dose: 75 mls/hr Documented by: Sodium Chloride (Sodium Chloride) 1,000 mls @ 50 mls/hr IV .Q20H [facility] Last Admin: 03/26/20 11:04 Dose: 50 mls/hr Documented by: Lisinopril (Lisinopril 10 Mg Tablet) 40 mg PO BID [facility] Last Admin: 03/26/20 09:30 Dose: Not Given Documented by: Magnesium Hydroxide (Magnesium Hydroxide 30 Ml Cup) 30 ml PO DAILY PRN PRN Reason: Constipation PREDNISONE 20 MG [facility] DAILY AM LAST ADMIN: Non-Formulary Medication (Rivastigmine Tartrate) 3 mg PO BID [facility] Last Admin: 03/26/20 09:29 Dose: Not Given Documented by: Oxybutynin Chloride (Oxybutynin Chloride 5 Mg Tab.Er.24) 5 mg PO DAILY [facility] Last Admin: 03/26/20 09:28 Dose: 5 mg Documented by: Tramadol HCl (Tramadol Hcl 50 Mg Tablet) 50 mg PO BID [facility] Last Admin: 03/26/20 09:28 Dose: 50 mg Documented by: NEW PRESCRIPTIONS: CEFEPIME 2 GRAM IV Q 12 HOURS FOR 5 DAYS PREDNISONE 20 MG PO DAILY DISCONTINUED MEDICATIONS: SOLU-MEDROL 40 MG IV Q 12 HOURS DIET INSTRUCTIONS: PUREED DIET (BONE CHAR OPERATOR MODIFIED) BOOST PLUS BID DIETITIAN TO CONSULT FOR NUTRITIONAL NEEDS ACTIVITY: TURN EVERY 2 HOURS UP TO CHAIR AT LEAST 1 TIME DAILY SMOKING: NOT APPLICABLE DISEASE SPECIFIC EDUCATION: NOT APPLICABLE DUE TO PATIENT DEMENTIA HOSPITAL COURSE: This is a white female who is a resident of [facility]. She was brought to the emergency room with a fever of 102, increased confusion, she wasn't eating. She was found to be in acute respiratory failure. ABGs were abnormal. P02 was in the 50s. Chest CT showed she had bilateral pneumonia. She was admitted, placed on IV Cefepime 2 gm IV q.12hr, started on D5 1/ with 30 potassium at 83 cc/hr due to hypokalemia on admission. Within about 36 hours, her hypokalemia resolved, potassium was at 5.1. We discontinued her potassium. Sodium had gone down so we switched her to Normal Saline. During this time, her fever has improved. She was almost dementia with psychosis on admission, she did not speak, she would not eat. After about three to four days with IV antibiotics and fluids, she is speaking some and somewhat responsive. We are going to admit her to swing bed for continued IV therapy of antibiotics. We did a repeat chest x-ray which showed that she still had persistent pneumonia although slightly improved and the fact that she does not want to eat. We have tried to discuss with the daughter the fact that she might not improve and may eventually need a hospice referral however we will discharge from acute. She is stable. Labs are stable. Kidney function is improved and stable. We will place her in swing bed for IV antibiotics. TIME SPENT: More than 60 minutes. [facility]
--- NOTE | 2020-03-31 10:35 | PN ---
DATE OF SERVICE: 03/26/20 SUBJECTIVE: The patient was seen and examined with the nurse practitioner. Condition has stabilized. She is afebrile. Covid negative. The patient is going to be put on swingbed for IV antibiotics. Prognosis is poor. TIME SPENT: More than 30 minutes. Plan and coordination of the patient's care discussed in the presence of nurse. JONAS
--- NOTE | 2020-03-31 10:38 | PN ---
CODING FOR BILLING 03/21/20 ADMISSION DAY LEVEL 5 03/22/20 INTERMEDIATE 03/23/20 INTERMEDIATE 03/24/20 INTERMEDIATE 03/25/20 INTERMEDIATE 03/26/20 DISCHARGE FROM ACUTE AND ADMITTED TO [facility]
== END 2020-03-26 14:23 | disposition swing bed (61) | DRG 864 ==
LOC: ED 07:06 → SCU 09:40 → MEDSURG A 03-23 19:47 → EDSTATUS 03-24 09:41
PROVIDERS: ADMIT Internal Medicine; ATTEND Internal Medicine
DX: N32.81 Overactive bladder; I10 Essential (primary) hypertension; R06.2 Wheezing; F03.90 Unspecified dementia, unspecified severity, without behavioral disturbance, psychotic disturbance, mood disturbance, and anxiety; N39.0 Urinary tract infection, site not specified; R13.10 Dysphagia, unspecified; E87.6 Hypokalemia; E87.0 Hyperosmolality and hypernatremia; R50.9 Fever, unspecified; R62.7 Adult failure to thrive; J40 Bronchitis, not specified as acute or chronic; J18.9 Pneumonia, unspecified organism; R05 Cough; J96.00 Acute respiratory failure, unspecified whether with hypoxia or hypercapnia